=== PATIENT | female | born 1950 | race Caucasian/White ===

== ENCOUNTER 2020-12-02 09:57 | Inpatient (IN) | payer MEDICARE, OTHER ==
[~2020-12-02] VITALS: Ht 167.6 cm; Wt 77.1 kg
[2020-12-02 11:24] LABS: HEMOGLOBIN 15.2 gm/dl (12.3-15.3); RED BLOOD COUNT 4.92 M/UL (4.00-5.10); WHITE BLOOD COUNT 11.1 K/UL (4.5-11.0)
[2020-12-02 11:51] LABS: BUN/CREATININE RATIO 27 (0-10)
[2020-12-02] MEDS ORDERED: HYDROCODON-ACE1 EAC6 PO (16:54)
[2020-12-02] MEDS ORDERED: COREG 12.5MG12.5 MG PO (16:54)
[2020-12-02] MEDS ORDERED: ALDACTONE50 MG PO (16:55)
[2020-12-02] MEDS ORDERED: HYDRALAZINE HCL25 MG PO (16:55)
[2020-12-02] MEDS ORDERED: PROVENTIL HFA6.7 GM INH (16:55)
[2020-12-02] MEDS ORDERED: FENOFIBRATE200 MG PO (16:56)
[2020-12-02] MEDS ORDERED: CATAPRES 0.1MG0.1 MG PO (16:56)
[2020-12-02] MEDS ORDERED: FUROSEMIDE40 MG PO (16:57)
[2020-12-02] MEDS ORDERED: CLOPIDOGREL75 MG PO (16:57)
[2020-12-02] MEDS ORDERED: MONTELUKAST SOD10 MG PO (16:58)
[2020-12-02] MEDS ORDERED: PROPRANOLOL HCL60 MG PO (16:58)
[2020-12-02] MEDS ORDERED: SYNTHROID25 MCG PO (16:58)
[2020-12-02] MEDS ORDERED: PREGABALIN75 MG PO (16:59)
[2020-12-02] MEDS ORDERED: TRELEGY ELLIPT1 EACH INH (16:59)
[2020-12-02] MEDS ORDERED: CLARITIN10 MG PO (17:00)
[2020-12-02] MEDS ORDERED: ASPIRIN EC81 MG PO (17:00)
[2020-12-02] MEDS ORDERED: PROTONIX 40 MG40 M1 PO (17:00)
[2020-12-02] MEDS ORDERED: VITAMIN D325 MCG PO (17:01)
[2020-12-02] MEDS ORDERED: VITAMIN B-121000 MC3 PO (17:01)
[2020-12-02] MEDS ORDERED: JANUMET 50-1,01 EACH PO (17:02)
[2020-12-03 08:08] LABS: HEMOGLOBIN 13.8 gm/dl (12.3-15.3); RED BLOOD COUNT 4.64 M/UL (4.00-5.10); WHITE BLOOD COUNT 11.4 K/UL (4.5-11.0)
[2020-12-03 08:26] LABS: BUN/CREATININE RATIO 28 (0-10)
[2020-12-04 11:27] LABS: HEMOGLOBIN 14.8 gm/dl (12.3-15.3); RED BLOOD COUNT 4.89 M/UL (4.00-5.10); WHITE BLOOD COUNT 9.4 K/UL (4.5-11.0)
[2020-12-04 11:49] LABS: BUN/CREATININE RATIO 29 (0-10)
[2020-12-04] MEDS ORDERED: CARVEDILOL25 MG PO (16:04)
[2020-12-05] MEDS ORDERED: QUETIAPINE FUMA25 MG PO (08:05)
[2020-12-05] MEDS ORDERED: CARVEDILOL25 MG PO (08:06)
== END 2020-12-05 13:35 | disposition home health service (06) | DRG 78 ==
LOC: ER1 09:57 → PROG CARE 16:22 → CDU 16:22 → PROG CARE 18:58
PROVIDERS: Physician Assistant; ADMIT Internal Medicine
PROC: B24BZZZ Ultrasonography of Heart with Aorta (ICD-10-PCS; principal; 2020-12-03)
DX: I67.4 Hypertensive encephalopathy (principal); I16.1 Hypertensive emergency; J90 Pleural effusion, not elsewhere classified; Z20.822 Contact with and (suspected) exposure to COVID-19; I25.10 Atherosclerotic heart disease of native coronary artery without angina pectoris; J44.9 Chronic obstructive pulmonary disease, unspecified; F17.210 Nicotine dependence, cigarettes, uncomplicated; I65.23 Occlusion and stenosis of bilateral carotid arteries; R29.6 Repeated falls; E87.6 Hypokalemia; E03.9 Hypothyroidism, unspecified; M25.461 Effusion, right knee; E78.5 Hyperlipidemia, unspecified; I07.1 Rheumatic tricuspid insufficiency; Z96.653 Presence of artificial knee joint, bilateral; F03.90 Unspecified dementia, unspecified severity, without behavioral disturbance, psychotic disturbance, mood disturbance, and anxiety; E11.22 Type 2 diabetes mellitus with diabetic chronic kidney disease; S80.01XA Contusion of right knee, initial encounter; Z79.02 Long term (current) use of antithrombotics/antiplatelets; Z79.890 Hormone replacement therapy; Z95.1 Presence of aortocoronary bypass graft; Z90.710 Acquired absence of both cervix and uterus; Z79.4 Long term (current) use of insulin
CPT/HCPCS: ECHO; 70450; 70498; 70551; 71045; 73564; 80048; 80053; 80307; 81001; 82140; 82550; 82553; 82607; 82962; 83036; 83874; 84439; 84443; 84484; 85025; 85027; 86140; 87040; 87086; 93005; 93306; 93880; 94640; 94664; 94760; 95816; 96374; 97162; 97166; 99285; J0360; J2060; J3480; J3486; J7030; Q9967; U0002